=== PATIENT | male | born 1960 | race Caucasian/White ===

== ENCOUNTER 2017-07-07 11:48 | Emergency (ER) | payer SELFPAY ==
[~2017-07-07] VITALS: Ht 172.7 cm; Wt 70.0 kg
[2017-07-07 11:57] VITALS: BP 143/72; PULSE 87; RESP 16; TEMP 98.4; O2SAT 99
[2017-07-07 12:00] VITALS: BP 129/61; PULSE 75; RESP 18; O2SAT 97
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
[2017-07-07 12:35] LABS: AUTOMATED NEUTROPHIL # 5.2 TH/MM3 (1.8-7.7); BASOPHIL # 0.1 TH/MM3 (0-0.2); BASOPHIL % 0.9 % (0.0-2.0); EOSINOPHIL # 0.2 TH/MM3 (0-0.4); EOSINOPHIL % 1.8 % (0.0-4.0); HEMATOCRIT 38.3 % (39.0-51.0); HEMOGLOBIN 12.9 GM/DL (13.0-17.0); LYMPH % 21.7 % (9.0-44.0); LYMPHOCYTE # 1.9 TH/MM3 (1.0-4.8); MEAN CORPUSCULAR HEMOGLOBIN 28.6 PG (27.0-34.0); MEAN CORPUSCULAR HGB CONC 33.6 % (32.0-36.0); MEAN PLATELET VOLUME 7.5 FL (7.0-11.0); MONO % 16.9 % (0.0-8.0); MONOCYTE # 1.5 TH/MM3 (0-0.9); NEUT % 58.7 % (16.0-70.0); PLATELET COUNT 268 TH/MM3 (150-450); RED BLOOD COUNT 4.51 MIL/MM3 (4.50-5.90); RED CELL DISTRIBUTION WIDTH 16.1 % (11.6-17.2); WHITE BLOOD COUNT 8.9 TH/MM3 (4.0-11.0)
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
[2017-07-07 13:00] VITALS: BP 118/56; PULSE 70; RESP 18; O2SAT 98
[2017-07-07 13:13] LABS: ALBUMIN 3.4 GM/DL (3.4-5.0); AST (GOT) 51 U/L (15-37); BICARBONATE 27.1 MEQ/L (21.0-32.0); BLOOD UREA NITROGEN 8 MG/DL (7-18); CALCIUM 8.6 MG/DL (8.5-10.1); CHLORIDE 107 MEQ/L (98-107); CREATININE 1.15 MG/DL (0.60-1.30); GLOMERULAR FILTRATION RATE 65 ML/MIN (>89); GLUCOSE,RANDOM 99 MG/DL (74-106); SODIUM (NA) 140 MEQ/L (136-145)
[2017-07-07 13:21] LABS: ALKALINE PHOSPHATASE 59 U/L (45-117); ALT (GPT) 34 U/L (12-78); TOTAL BILIRUBIN ADULT 0.4 MG/DL (0.2-1.0); TOTAL PROTEIN 7.4 GM/DL (6.4-8.2)
[2017-07-07 13:23] LABS: ACETAMINOPHEN LESS THAN 2.0 MCG/ML (10.0-30.0)
[2017-07-07 15:04] VITALS: BP 100/56; PULSE 70; RESP 18; O2SAT 95
[2017-07-07 17:28] VITALS: BP 113/59; PULSE 70; RESP 16; TEMP 98.6; O2SAT 96
[2017-07-07] MEDS ORDERED: diphenhydrAMINE HCL 50 MG CAP PO ONE (22:15)
[2017-07-07] MEDS ORDERED: NICOTINE 21 MG/24 HR PATCH T-DERMAL ONE (22:15)
[2017-07-07 23:22] VITALS: BP 103/51; PULSE 64; RESP 18; TEMP 98.2; O2SAT 100
[2017-07-08 05:18] VITALS: RESP 16
--- NOTE | 2017-07-08 08:01 | PD ---
Data Data Last Documented VS Vital Signs Date Time Temp Pulse Resp B/P (MAP) Pulse Ox O2 Delivery O2 Flow Rate FiO2 07/08/17 05:18 16 07/07/17 23:22 98.2 64 100 Room Air Orders Orders Complete Blood Count With Diff (07/07/17 12:05) Comprehensive Metabolic Panel (07/07/17 12:05) Thyroid Stimulating Hormone (07/07/17 12:05) Electrocardiogram (07/07/17 12:05) Psych Screen (07/07/17 12:05) Drug Screen, Random Urine (07/07/17 12:05) Alcohol (Ethanol) (07/07/17 12:05) Salicylates (Aspirin) (07/07/17 12:05) Tylenol (Acetaminophen) (07/07/17 12:05) Ct Brain W/O Iv Contrast(Rout) (07/07/17 ) Ct Cerv Spine W/O Contrast (07/07/17 ) Ct Facial Bones W/O Iv Cont (07/07/17 ) Nicotine 21 Mg Patch.24 Hr (Habitrol 21 (07/07/17 22:15) Diphenhydramine (Benadryl) (07/07/17 22:15) Diet Regular Basic (07/08/17 Breakfast) Labs Laboratory Tests Test 07/07/17 12:22 07/07/17 22:45 White Blood Count 8.9 TH/MM3 Red Blood Count 4.51 MIL/MM3 Hemoglobin 12.9 GM/DL Hematocrit 38.3 % Mean Corpuscular Volume 85.0 FL Mean Corpuscular Hemoglobin 28.6 PG Mean Corpuscular Hemoglobin Concent 33.6 % Red Cell Distribution Width 16.1 % Platelet Count 268 TH/MM3 Mean Platelet Volume 7.5 FL Neutrophils (%) (Auto) 58.7 % Lymphocytes (%) (Auto) 21.7 % Monocytes (%) (Auto) 16.9 % Eosinophils (%) (Auto) 1.8 % Basophils (%) (Auto) 0.9 % Neutrophils # (Auto) 5.2 TH/MM3 Lymphocytes # (Auto) 1.9 TH/MM3 Monocytes # (Auto) 1.5 TH/MM3 Eosinophils # (Auto) 0.2 TH/MM3 Basophils # (Auto) 0.1 TH/MM3 CBC Comment DIFF FINAL Differential Comment Blood Urea Nitrogen 8 MG/DL Creatinine 1.15 MG/DL Random Glucose 99 MG/DL Total Protein 7.4 GM/DL Albumin 3.4 GM/DL Calcium Level 8.6 MG/DL Alkaline Phosphatase 59 U/L Aspartate Amino Transf (AST/SGOT) 51 U/L Alanine Aminotransferase (ALT/SGPT) 34 U/L Total Bilirubin 0.4 MG/DL Sodium Level 140 MEQ/L Potassium Level 3.0 MEQ/L Chloride Level 107 MEQ/L Carbon Dioxide Level 27.1 MEQ/L Anion Gap 6 MEQ/L Estimat Glomerular Filtration Rate 65 ML/MIN Thyroid Stimulating Hormone 3rd Gen 0.353 uIU/ML Salicylates Level 2.4 MG/DL Acetaminophen Level LESS THAN 2.0 MCG/ML Ethyl Alcohol Level LESS THAN 3 MG/DL Urine Opiates Screen POS Urine Barbiturates Screen NEG Urine Amphetamines Screen NEG Urine Benzodiazepines Screen POS Urine Cocaine Screen NEG Urine Cannabinoids Screen NEG MDM Medical Record Reviewed: Yes Supervised Visit with STARR: No Narrative Course Please see previous providers notes. This patient has been seen by psychiatrist Dr. Orellana who is discharging the patient. He has no medical issues that would warrant further hospitalization. Diagnosis Primary Impression: Narcotic overdose Qualified Codes: T40.604A - Poisoning by unspecified narcotics, undetermined, initial encounter Med/Other Pt SpecificInfo: No Change to Meds Disposition: 01 DISCHARGE HOME Condition: Stable Noé Kennedy Jul 08, 2017 08:01
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
--- NOTE | 2017-07-08 14:22 | EKG ---
Date Performed: 07/07/2017 Time Performed: 12:14:04 PTAGE: 56 years EKG: Sinus rhythm NORMAL ECG NO PREVIOUS TRACING DOCTOR: Wanda Luo Interpretating Date/Time 07/08/2017 14:20:20
== END 2017-07-08 10:01 | disposition home or self-care (01) ==
LOC: NEPD 11:48 → NEPJ 07-08 10:01
DX: T40.601A Poisoning by unspecified narcotics, accidental (unintentional), initial encounter (principal); G89.29 Other chronic pain
CPT/HCPCS: 70450; 70486; 72125; 80053; 80307; 84443; 85025; 93005; 99285